=== PATIENT | female | born 1990 | race Caucasian/White ===

== ENCOUNTER → 2018-08-31 | Outpatient (REF) | payer BC | LOC: M LAB REF 11:39 | DX: B07.9 Viral wart, unspecified (principal) ==

== ENCOUNTER → 2021-10-21 | Outpatient (REF) ==
[~2021-10-21] MED LIST: LORA10TA2 PO; MOME50SP; SERT25TA85 PO; VENTAER IN; ZOLO50TA PO
== END ==
LOC: M LAB REF 08:29
DX: Z01.89 Encounter for other specified special examinations (principal)